=== PATIENT | male | born 1970 | race Caucasian/White ===

== ENCOUNTER → 2019-05-19 | Outpatient (CLI) | payer BC ==
[~2019-05-19] MED LIST: ASPIRIN EC81 M1 PO; ASPIRIN325 PO; AUGMENTIN 875-1 EACH PO; AUGMENTIN 875875 MG PO; LOPRESSOR25 PO; NORCO 5-325 TA1 EACH PO; PROAIR HFA8.5 GM INH; TOPROL XL25 MG PO
== END ==
LOC: SJCVCIMAG 08:03
DX: I08.8 Other rheumatic multiple valve diseases (principal); R07.89 Other chest pain; R53.83 Other fatigue; E78.5 Hyperlipidemia, unspecified